=== PATIENT | female | born 2000 | race Two or more races ===

== ENCOUNTER 2019-07-31 16:06 | Inpatient (IN) | payer OTHER ==
[2019-07-30 17:00] VITALS: BP 115/76
[~2019-07-31] VITALS: Ht 147.3 cm; Wt 46.7 kg
[2019-07-31] MEDS ORDERED: METHYLERGONOVINE 0.2 MG/ML AMP IM PRN (17:20)
[2019-07-31] MEDS ORDERED: CARBOPROST 250 MCG/ML AMP IM PRN (17:20)
[2019-07-31] MEDS ORDERED: NALBUPHINE 10 MG/ML AMP IVP PRN (17:20)
[2019-07-31] MEDS: LACTATED RINGERS 1,000 ML IV SCH (17:52)
[2019-07-31 17:54] LABS: BASOPHILS % (AUTO) 0.3 % (0.0-2.0); EOSINOPHILS % (AUTO) 0.2 % (0.0-4.0); HEMATOCRIT 36.9 % (36-48); HEMOGLOBIN 12.3 g/dL (12.0-16.0); LYMPHOCYTES # (AUTO) 2.7 K/uL (2.5-16.5); LYMPHOCYTES % (AUTO) 34.8 % (20.5-51.1); MEAN CORPUSCULAR HEMOGLOBIN 28 pg (27-31); MEAN CORPUSCULAR HGB CONC 34 g/dL (33-37); MEAN CORPUSCULAR VOLUME 84.2 fL (80-94); MONOCYTES # (AUTO) 0.5 K/uL (0.8-1.0); MONOCYTES % (AUTO) 6.5 % (1.7-9.3); NEUTROPHILS # (AUTO) 4.5 K/uL (1.8-7.7); NEUTROPHILS % (AUTO) 58.2 % (42.2-75.2); PLATELET COUNT (AUTO) 319 K/uL (140-450); RED BLOOD CELL COUNT(AUTO) 4.38 MIL/uL (4.20-5.40); RED CELL DISTRIBUTION WIDTH 13.2 % (11.6-13.7); WHITE BLOOD COUNT (AUTO) 7.8 K/uL (4.5-11.0)
[2019-07-31 18:00] LABS: APPEARANCE,URINE CLEAR (CLEAR); BILIRUBIN,URINE NEGATIVE (NEGATIVE); BLOOD, URINE NEGATIVE (NEGATIVE); COLOR,URINE YELLOW (YELLOW); LEUKOCYTE ESTERASE ,URINE TRACE (NEGATIVE); NITRITE, URINE NEGATIVE (NEGATIVE); UGLUCOSE NEGATIVE (NEGATIVE)
[2019-07-31] MEDS ORDERED: MISOPROSTOL 25 MCG TAB ONE (18:07)
[2019-07-31] MEDS ORDERED: MISOPROSTOL 200 MCG TAB VG SCH (18:10)
[2019-07-31 19:21] LABS: RBC,URINE 0 /HPF (0-5)
[2019-07-31 19:22] LABS: WBC,URINE 0-5 /HPF (0-5)
[2019-07-31] MEDS ORDERED: OXYTOCIN 20 UNITS in LACTATED RINGERS 1,000 ML IV SCH (21:05)
[2019-08-01] MEDS: LACTATED RINGERS 1,000 ML IV SCH ×3 (02:00→13:07)
[2019-08-01] MEDS ORDERED: BUPIVACAINE 0.125%/NS PREMIX 250 ML EPI SCH (05:00)
[2019-08-01] MEDS ORDERED: BUPIVACAINE-MPF 0.5% 30 ML VIAL INJ ONE (05:09)
[2019-08-01] MEDS ORDERED: OXYTOCIN 20 UNITS/LR PREMIX 1,000 ML IV ONE (06:33)
[2019-08-01] MEDS: ONDANSETRON 4 MG/2 ML VIAL IVP PRN ×3 (08:30→20:27)
[2019-08-01] MEDS ORDERED: LIDOCAINE 1% 500 MG/50 ML VIAL ONE (16:12)
[2019-08-01] MEDS ORDERED: METHYLERGONOVINE 0.2 MG/ML AMP IM PRN (16:45)
[2019-08-01] MEDS ORDERED: TEMAZEPAM 15 MG CAP PO PRN (16:45)
[2019-08-01] MEDS ORDERED: oxyCODONE/APAP 5/325 MG 1 TAB TAB PO PRN (16:45)
[2019-08-01] MEDS ORDERED: BENZOCAINE/MENTHOL 20%-0.5% 60 GM CAN TP PRN (16:45)
[2019-08-01] MEDS ORDERED: OXYTOCIN 10 UNITS/ML VIAL IM PRN (16:45)
[2019-08-01] MEDS ORDERED: HYDROcodone/APAP 5/325 MG 1 TAB TAB PO PRN (16:45)
[2019-08-01] MEDS ORDERED: ceFAZolin 1,000 MG VIAL ONE (17:05)
[2019-08-01] MEDS: IBUPROFEN 800 MG TAB PO PRN (17:15)
[2019-08-01] MEDS ORDERED: KETOROLAC 15 MG/ML VIAL IVP PRN (21:00)
[2019-08-01] MEDS ORDERED: SENNA 8.6 MG TAB PO SCH (21:00)
[2019-08-02] MEDS ORDERED: ceFAZolin 1,000 MG VIAL ONE (01:18)
[2019-08-02 06:00] LABS: HEMATOCRIT 26.7 % (36-48); HEMOGLOBIN 8.7 g/dL (12.0-16.0)
--- NOTE | 2019-08-02 08:38 | NUR ---
PATIENT HAS BEEN SCREENED AND CATEGORIZED LOW NUTRITION RISK. PATIENT WILL BE SEEN WITHIN 7 DAYS OF ADMISSION. 08/07/[address]
[2019-08-02] MEDS: IBUPROFEN 800 MG TAB PO PRN ×2 (09:36→21:09)
[2019-08-02] MEDS ORDERED: DOCUSATE SOD/SENNA 50/8.6 MG 1 TAB PO SCH (21:00)
[2019-08-03] MEDS: IBUPROFEN 800 MG TAB PO PRN (10:42)
== END 2019-08-03 14:26 | disposition home or self-care (01) | DRG 560 ==
LOC: MFCC 16:06
PROVIDERS: ADMIT Obstetrics & Gynecology; ATTEND Obstetrics & Gynecology
PROC: 10D07Z6 Extraction of Products of Conception, Vacuum, Via Natural or Artificial Opening (ICD-10-PCS; principal; 2019-08-01)
PROC: 0DQP0ZZ Repair Rectum, Open Approach (ICD-10-PCS; 2019-08-01)
PROC: 00HU33Z Insertion of Infusion Device into Spinal Canal, Percutaneous Approach (ICD-10-PCS; 2019-08-01)
PROC: 3E0R3BZ Introduction of Anesthetic Agent into Spinal Canal, Percutaneous Approach (ICD-10-PCS; 2019-08-01)
PROC: 10907ZC Drainage of Amniotic Fluid, Therapeutic from Products of Conception, Via Natural or Artificial Opening (ICD-10-PCS; 2019-08-01)
DX: O77.9 Labor and delivery complicated by fetal stress, unspecified (principal); O70.3 Fourth degree perineal laceration during delivery; O36.63X0 Maternal care for excessive fetal growth, third trimester, not applicable or unspecified; Z37.0 Single live birth; Z3A.39 39 weeks gestation of pregnancy
CPT/HCPCS: 36415; 51702; 59200; 81001; 85018; 85025; 86592; 86886; 86900; 86901; J0690; J1885; J2001; J2210; J2300; J2405; J2590; J3490; J7060; J7120